=== PATIENT | female | born 1975 | race Caucasian/White ===

== ENCOUNTER 2016-10-06 23:40 | Emergency (ER) | payer OTHER ==
[~2016-10-06 23:40] MED LIST: ALPRAZOLAM; ASPIRIN PO; COREG; HYDROCODON-ACE1 EAC1 PO; IBUPROFEN; KLONOPIN; MAXALT5 MG; NEURONTIN300 MG; PERCOCET 10/3251 TAB; PERCOCET5/325 PO; PROTONIX; PROZAC; PROZAC PO; TOPAMAX; ULTRAM PO; VICODIN; XANAX1 MG PO; ZANAFLEX; ZANTAC PO; ZITHROMAX PO
== END 2016-10-07 00:32 | disposition home or self-care (01) ==
LOC: SED 23:40
DX: S01.81XA Laceration without foreign body of other part of head, initial encounter (principal); G43.909 Migraine, unspecified, not intractable, without status migrainosus; W26.9XXA Contact with unspecified sharp object(s), initial encounter; Y92.096 Garden or yard of other non-institutional residence as the place of occurrence of the external cause
CPT/HCPCS: 12052; 99283

== ENCOUNTER 2016-10-16 16:20 | Emergency (ER) | payer OTHER ==
--- NOTE | ~2016-10-16 | CT71 ---
[facility] A Service [facility] RADIOLOGY TEXT RESULTS PATIENT: ANTHONY GUERRERO LOCATION: SED : 75 UNIT #: [id number] AGE: [address]: Zuri Alvarez SEX: F ORDER DR: [id number] [address] [id number] E MR#: [id number] Acc #: [id number] NAME: ANTHONY GUERRERO : 1975 SEX: F STUDY DATE/TIME: 10/16/2016 16:49 UNIT: SED ROOM: STUDY DESCRIPTION: CT Head Wo Contrast Attending Physician: Scott Mcmahon Ordering Physician: Scott Mcmahon Primary Care Physician: Jonelle Melendez M.D. MEDICAL IMAGING REPORT This report is preliminary unless electronic signature is present. EXAM CT head without contrast 10/16/2016 HISTORY 41-year-old female with headache and dizziness status post fall 2 weeks ago. COMPARISON STUDIES None. TECHNIQUE Routine unenhanced axial images performed through the brain. This CT exam was performed with one or more of the following radiation dose reduction techniques: automatic exposure control, adjustment of mA and/or kV according to patient size, and iterative reconstruction. FINDINGS No hemorrhage, acute infarction, mass lesion, or abnormal extraaxial fluid collection. No midline shift or focal mass effect. Ventricular system is normal in size and configuration. No acute bony abnormality. Mucosal thickening right posterior ethmoid air cells and left sphenoid sinus. Minimal partial fluid opacification right-sided mastoid air cells. IMPRESSION 1. No acute intracranial abnormality. 2. Mucosal thickening right posterior ethmoid air cells and left sphenoid sinus. Minimal partial fluid opacification right-sided mastoid air cells. [facility] A Service [facility] RADIOLOGY TEXT RESULTS PATIENT: ANTHONY GUERRERO LOCATION: SED : 75 UNIT #: [id number] AGE: [address]: Zuri Alvarez PAC SEX: F ORDER DR: Dictated by... Mike Berry M.D. THIS IS AN ELECTRONICALLY VERIFIED REPORT Mike Berry M.D. at 10/19/2016 2:51 PM JORDON/colt TD: 10/16/2016 22:07 JOB #: [id number] MEDICAL IMAGING REPORT Page 1 of 1
[2016-10-16 17:04] LABS: BASOPHIL% 0.5 % (0-2.5); EOSINOPHIL# 0.1 X10e3 (0-0.7); EOSINOPHIL% 1.6 % (0.0-7.0); HEMATOCRIT 41.7 % (35.0-45.0); HEMOGLOBIN 13.8 gm/dL (12.0-16.0); LYMPHOCYTE# 1.8 X10e3 (1.0-3.5); LYMPHOCYTE% 27.5 % (17.0-45.0); MEAN CELL VOLUME 81.8 FL (83-96); MEAN CORPUSCULAR HEMOGLOBIN 27.1 PG (28-34); MEAN CORPUSCULAR HGB CONC 33.1 g/dL (30-36); MEAN PLATELET VOLUME 8.4 FL (6.5-11.5); MONOCYTE# 0.6 X10e3 (0-1.0); MONOCYTE% 8.8 % (3.0-12.0); NEUTROPHIL# 4.1 X10e3 (1.5-7.1); NEUTROPHIL% 61.6 % (40-75); PLATELET COUNT 199 X10e3 (140-420); RED CELL DISTRIBUTION WIDTH 14.6 % (11.0-15.5); WHITE BLOOD COUNT 6.6 X10e3 (4.0-10.5)
[2016-10-16 17:05] LABS: DIFF IND NO
[2016-10-16 17:30] LABS: BUN/CREATININE RATIO 15.55; CALCIUM SERUM 9.1 mg/dL (8.4-10.2); CREATININE SERUM 0.9 mg/dL (0.6-1.4); GLOM FILT RATE Estimated 79.5 mL/min (>60); POTASSIUM 3.1 mmol/L (3.5-5.1)
== END 2016-10-16 18:34 | disposition home or self-care (01) ==
LOC: SED 16:20
PROVIDERS: Physician Assistant
DX: R42 Dizziness and giddiness (principal); E87.5 Hyperkalemia; J32.9 Chronic sinusitis, unspecified; Z88.0 Allergy status to penicillin; Z88.5 Allergy status to narcotic agent; Z88.8 Allergy status to other drugs, medicaments and biological substances; Z79.899 Other long term (current) drug therapy; F41.9 Anxiety disorder, unspecified; K21.9 Gastro-esophageal reflux disease without esophagitis; Z90.710 Acquired absence of both cervix and uterus
CPT/HCPCS: 36415; 70450; 80048; 85025; 99284